=== PATIENT | female | born 1995 | race Caucasian/White ===

== ENCOUNTER 2019-10-30 19:55 | Emergency (ER) | payer OTHER, SELFPAY ==
[2019-10-30 19:58] VITALS: BP 130/86; PULSE 91; RESP 16; TEMP 37.3; O2SAT 100
--- NOTE | 2019-10-30 20:30 | ED.HA ---
HPI - Headache General Chief Complaint: Headache Stated Complaint: doesnt feel good. Time Seen by Provider: 10/30/19 20:06 Source: patient Mode of arrival: ambulatory Limitations: no limitations History of Present Illness HPI Narrative: Patient is a 24-year-old female who presents to emergency department for evaluation headache that is frontal in nature slight congestion denies vomiting diarrhea presents with concern of possible upper respiratory infection. Patient denies any sick contacts or exposures. Patient has not taken anything for her symptoms. Related Data Allergies Allergy/AdvReac Type Severity Reaction Status Date / Time amoxicillin [From Amoxil] Allergy Hives Verified 10/30/19 20:46 Review of Systems Review of Systems: All systems reviewed & are unremarkable except as noted in HPI and below PMFSH Social History Social History (Updated 10/30/19 @ 20:32 by Prateek Malik PA-C) Smoking status: Never smoker Gender identity (if verbalized by the patient): Female Exam Narrative: Exam Narrative: GENERAL: Well-appearing, well-nourished, and in no acute distress. HEAD: Normocephalic, atraumatic. EYES: PERRLA and EOMI. ENT: Nares clear, no rhinorrhea or epistaxis. Mucous membranes moist. Oropharynx without tonsillar hypertrophy exudate or other lesions. Bilateral TMs pearly anderson nonbulging NECK: Supple. No adenopathy or masses. CHEST: Clear to auscultation. No respiratory distress. No wheezes rales or rhonchi HEART: Regular rate and rhythm. No murmur heard. Normal peripheral pulses. ABDOMEN: Soft, nontender, nondistended EXTREMITIES: Normal range of motion. No edema. SKIN: Warm, dry, no rash. NEURO: No focal deficits. Alert and oriented x3. Neurovascularly intact. Cranial nerves II through XII grossly intact PSYCH: Normal mood and affect. Course Course Emergency Course: Patient in the room at this time resting comfortably in no distress had improvement with medications Vital Signs Vital signs: Vital Signs Temperature 99.1 F 10/30/19 19:58 Pulse Rate 91 10/30/19 19:58 Respiratory Rate 16 10/30/19 19:58 Blood Pressure 130/86 10/30/19 19:58 Pulse Oximetry 100 10/30/19 19:58 Temperature 99.1 F 10/30/19 19:58 Pulse Rate 91 10/30/19 19:58 Respiratory Rate 16 08/27/20 19:58 Blood Pressure 130/86 10/30/19 19:58 Pulse Oximetry 100 10/30/19 19:58 MDM - Headache MDM Narrative Medical decision making narrative: Patient in the room in no distress with likely viral upper respiratory infection hydrated treated in the emergency department feeling better at this time agreeing to follow-up with primary care for her COVID results will also self quarantine until she has received her results no hypoxemia no pneumonia Lab Data Result diagrams: 10/30/19 20:37 10/30/19 20:37 Labs: Lab Results 10/30/19 10/30/19 10/30/19 Range/Units 20:37 20:37 20:39 WBC 7.0 (4.5-10.0) K/mm3 RBC 4.57 (4.2-5.4) M/mm3 Hgb 11.8 L (12.0-15.0) g/dL Hct 35.9 L (37.0-47.0) % MCV 78.6 L (80-100) fl MCH 25.8 L (26-34) pg MCHC 32.9 (32-36) g/dl RDW 13.7 (11.5-14.5) % Plt Count 243 (150-375) k/mm3 MPV 9.5 (7.4-10.4) fl Immature Gran % (Auto) 0.3 (0-0.5) % Neut % (Auto) 31.7 L (45.5-73.1) % Lymph % (Auto) 58.5 H (18.3-44.2) % [place] % (Auto) 5.8 (2.6-8.5) % Eos % (Auto) 2.6 (0-4.4) % Baso % (Auto) 1.1 (0.2-1.2) % Lymph # (Auto) 4.11 H (0.9-3.2) K/mm3 [place] # (Auto) 0.4 (0.1-0.6) K/mm3 Eos # (Auto) 0.2 (0-0.3) K/mm3 Baso # (Auto) 0.1 (0.0-0.1) K/mm3 Abs Immat Gran (auto) 0.02 (0.00-0.031) K/mm3 Absolute Neuts (auto) 2.2 (1.3-6.7) K/mm3 Absolute Nucleated RBC 0.0 (0.0-0.012) K/mm3 Nucleated RBC % 0.0 (0.0-0.2) % Sodium 136 L (137-145) mmol/L Potassium 4.1 (3.4-5.0) mmol/L Chloride 103 (98-107) mmol/L Carbon Dioxide 23 (22-30) mmol/L A
[2019-10-30] MEDS: SODIUM CHLORIDE 0.9% IV 1,000 ML 999 ML IV CONT (20:42)
[2019-10-30 20:43] LABS: Basophils Absolute Auto 0.1 K/mm3 (0.0-0.1); Basophils Percent Auto 1.1 % (0.2-1.2); Eosinophils Absolute Auto 0.2 K/mm3 (0-0.3); Eosinophils Percent Auto 2.6 % (0-4.4); Hematocrit 35.9 % (37.0-47.0); Hemoglobin 11.8 g/dL (12.0-15.0); Immature Granulocyte Absolute 0.02 K/mm3 (0.00-0.031); Immature Granulocyte Percent A 0.3 % (0-0.5); Lymphocytes Absolute Auto 4.11 K/mm3 (0.9-3.2); Lymphocytes Percent Auto 58.5 % (18.3-44.2); Mean Corpuscular HGB Conc 32.9 g/dl (32-36); Mean Corpuscular Hemoglobin 25.8 pg (26-34); Mean Corpuscular Volume 78.6 fl (80-100); Mean Platelet Volume 9.5 fl (7.4-10.4); Monocytes Absolute Auto 0.4 K/mm3 (0.1-0.6); Monocytes Percent Auto 5.8 % (2.6-8.5); Neutrophils Absolute Auto 2.2 K/mm3 (1.3-6.7); Neutrophils Percent Auto 31.7 % (45.5-73.1); Platelet Count Result 243 k/mm3 (150-375); Red Blood Count 4.57 M/mm3 (4.2-5.4); Red Cell Distribution Width 13.7 % (11.5-14.5)
[2019-10-30] MEDS: KETOROLAC 30 MG/ML VIAL (*BKC) IV PUSH (20:43)
[2019-10-30 20:54] LABS: Anion Gap 10 mmol/L (8-16); Blood Urea Nitrogen 9 mg/dL (7-17); Calcium 9.2 mg/dL (8.4-10.2); Carbon Dioxide 23 mmol/L (22-30); Chloride 103 mmol/L (98-107); Estimated Glomerular Filt Rate > 60; Glucose 101 mg/dL (65-105); Potassium 4.1 mmol/L (3.4-5.0); Sodium 136 mmol/L (137-145)
[2019-10-30 20:54] LABS: Add Urine Microscopic? NO; Appearance Urine Clear (Clear); Bilirubin Urine Negative (Negative); Blood Urine Negative (Negative); Color Urine Straw (Yellow); Glucose Urine UA Negative (Negative); Ketones Urine Negative (Negative); Leukocyte Esterase Ur Negative LEU/UL (Negative); Nitrate Urine Negative (Negative); Protein Urine Negative (Negative); Urobilinogen Urine Negative mg/dL (<2.0)
[2019-10-30 22:40] VITALS: BP 110/72; PULSE 80; RESP 20; O2SAT 99
[2019-10-31 14:11] LABS: SARS-CoV-2 RNA PCR Negative
== END 2019-10-30 22:41 | disposition home or self-care (01) ==
PROVIDERS: Emergency Medicine Emergency Medical Services; Emergency Provider Emergency Medicine
DX: R51 Headache (principal); Z20.828 Contact with and (suspected) exposure to other viral communicable diseases
CPT/HCPCS: 36415; 80048; 81003; 81025; 85025; 87635; 96365; 96375; 99284; C9803; J0131; J1885; J7030; U0003

== ENCOUNTER 2020-08-03 10:11 | Emergency (ER) | payer SELFPAY ==
--- NOTE | 2020-08-03 10:21 | ED.NECK ---
HPI - Neck Pain/Injury General Stated Complaint: neck pain Time Seen by Provider: 08/03/20 10:14 Source: patient Mode of arrival: ambulatory Limitations: no limitations History of Present Illness HPI Narrative: 25-year-old with no major medical problems here with complaints of right-sided neck pain radiating into her arm for last 3 to 4 days. Patient states that she is being working out recently.. She denies any trauma or lifting heavy weights. She also mentions that she has been using CBD oil which numbs the area up but still has pain. She denies any tingling numbness. No other complaints expressed at this time. complaint: upper back pain Place: home Radiation: right lateral Severity: mild Quality: dull and aching Duration: constant Relieving factors: none Exacerbating factors: none Context: unknown Associated symptoms: none Related Data Allergies Allergy/AdvReac Type Severity Reaction Status Date / Time amoxicillin [From Amoxil] Allergy Hives Verified 08/03/20 10:34 Review of Systems Review of Systems: All systems reviewed & are unremarkable except as noted in HPI and below Constitutional: Constitutional: Reports no additional constitutional complaints Eyes: Eyes: Reports no additional eye complaints ENT: Reports system reviewed and no additional complaints, except as documented Cardiovascular: Cardiovascular: Reports no additional cardiovascular complaints Respiratory: Respiratory: Reports no additional respiratory complaints Gastrointestinal: Gastrointestinal: Reports no additional gastrointestinal complaints Musculoskeletal: Musculoskeletal: Reports as per HPI Neurologic: Reports system reviewed and no additional complaints, except as documented PMFSH Social History Social History Smoking status: Never smoker Gender identity (if verbalized by the patient): Female Exam Narrative: Exam Narrative: GENERAL: Well-appearing, well-nourished, and in no acute distress. HEAD: Normocephalic, atraumatic. EYES: PERRLA and EOMI. ENT: Nares clear, no rhinorrhea or epistaxis. Mucous membranes moist. NECK: Supple. Pain along the right trapezius margin. CHEST: Clear to auscultation. No respiratory distress. HEART: Regular rate and rhythm. No murmur heard. Normal peripheral pulses. EXTREMITIES: Normal range of motion. No edema. SKIN: Warm, dry, no rash. NEURO: No focal deficits. Alert and oriented x3. PSYCH: Normal mood and affect. Discharge Plan Discharge Clinical Impression: Strain of right trapezius muscle Qualifiers: Encounter type: initial encounter Qualified Code(s): S46.811A - Strain of other muscles, fascia and tendons at shoulder and upper arm level, right arm, initial encounter Patient Disposition: Home, Self-Care Condition: Stable Instructions: Antibiotic Form, Back Pain (ED) Prescriptions: New ibuprofen 600 mg tablet 600 mg PO Q6H PRN (Reason: pain) Qty: 20 RF: 0 cyclobenzaprine 5 mg tablet 5 mg PO TID PRN (Reason: muscle spasm) Qty: 20 RF: 0 No Action fluticasone propionate [Flonase Allergy Relief] 50 mcg/actuation spray,suspension 2 spray NASAL ONCE Qty: 9.9 RF: 0 loratadine [Claritin] 10 mg tablet 10 mg PO DAILY PRN (Reason: allergy symptoms) Qty: 10 RF: 0 ibuprofen [IBU] 600 mg tablet 600 mg PO QID PRN (Reason: fever or pain) Qty: 7 RF: 0 fluticasone propionate [Allergy Relief (fluticasone)] 50 mcg/actuation spray,suspension 2 spray NASAL DAILY Qty: 9.9 RF: 0 ibuprofen 600 mg tablet 600 mg PO Q6H PRN (Reason: pain) Qty: 10 RF: 0 loratadine 10 mg tablet 10 mg PO DAILY Qty: 10 RF: 0 Follow-up/Referrals: PHYSICIAN NOT ON STAFF,NONSTAFF [Non-Staff] - Stand Alone Forms: Work/School Release IP Time of Disposition: 10:26
[2020-08-03 10:32] VITALS: BP 126/85; PULSE 94; RESP 16; TEMP 36.7; O2SAT 97
== END 2020-08-03 10:44 | disposition home or self-care (01) ==
LOC: ANHED 10:28
PROVIDERS: Emergency Provider Family Medicine; PCP Internal Medicine
DX: S46.811A Strain of other muscles, fascia and tendons at shoulder and upper arm level, right arm, initial encounter (principal); X50.0XXA Overexertion from strenuous movement or load, initial encounter
CPT/HCPCS: 99283